=== PATIENT | female | born 1945 | race African-American/Black ===

== ENCOUNTER 2020-05-26 23:32 | Inpatient (IN) | payer OTHER ==
[2020-05-27 00:40] LABS: Basophils % 0.2 % (0-1.3); Hematocrit 45.7 % (36.0-45.0); MPV 10.9 fL (7.6-11.3); RBC Red Blood Cell Count 5.43 M/uL (3.86-4.86)
[2020-05-27 00:57] LABS: Bilirubin Direct 0.3 mg/dL (0-0.2); Bilirubin Total 0.7 mg/dL (0.2-1.0); Protein, Total 7.2 g/dL (6.4-8.2)
[2020-05-27 01:07] LABS: Ferritin 315.9 ng/mL (8-388); Potassium 3.6 mmol/L (3.5-5.1); Troponin (Emerg Dept Use Only) 0.28 ng/mL (0.0-0.045)
[2020-05-27 01:07] LABS: Urine Blood TRACE (NEG); Urine Glucose NEGATIVE (NEG); Urine Protein 3+ (NEG); Urine Specific Gravity >1.030 (1.005-1.030)
[2020-05-27 01:15] LABS: Urine Bacteria >50 /HPF (<20); Urine Culture Reflex Order REFLEXED; Urine Mucus 2+ /HPF (NONE SEEN); Urine RBC <5 /HPF (NONE SEEN)
[2020-05-27 01:16] LABS: Urine Amorphous Sediment 3+ /HPF (NONE SEEN); Urine Coarse Granular Casts FEW /LPF (NONE SEEN)
[2020-05-27] MEDS ORDERED: CEFTRIAXONE/SWI 1gm 1 GM/10 ML SYR ONE ×2 (01:18→15:41)
[2020-05-27] MEDS ORDERED: NA CHLORIDE 0.9% 250 ML ONE (01:18)
[2020-05-27] MEDS ORDERED: dexAMETHasone 10 MG/ML VIAL ONE (01:18)
[2020-05-27] MEDS ORDERED: AZITHROMYCIN 500 MG INJ IVPB ONE ×2 (01:18→21:06)
--- NOTE | 2020-05-27 01:22 | EDPHYS ---
Physician Documentation [facility] Name: Zakiya Stallings Age: 74 yrs Sex: Female : 1945 Arrival Date: 05/26/2020 Time: 23:34 Bed 30 Private MD: ED Physician Angel Vasquez HPI: 05/26 23:52 This 74 yrs old Black Female presents to ER via Ambulatory with complaints of Exosed to rn covid, Heavy Breathing. 23:54 The patient has shortness of breath at rest. Onset: The symptoms/episode began/occurred rn 1 week(s) ago. Duration: The symptoms are continuous. The patient's shortness of breath is aggravated by light activity, is alleviated by nothing. Severity of symptoms: At their worst the symptoms were moderate in the emergency department the symptoms are unchanged. The patient has not experienced similar symptoms in the past. The patient has not recently seen a physician. Son noticed respiratory difficulty today, other family member noticed difficulty breathing with heavy breathing last week, patient's sister recently diagnosed with COVID, and visited last week. Reports generalized weakness, fatigue, sob, decreased appetite, and loss of taste. No known chronic lung problems. . Historical: - Allergies: 23:43 No Known Allergies; ss - PMHx: 23:43 Diabetes - NIDDM; Hypertension; Parkinsons; ss - PSHx: 23:43 R shoulder; knee sx; ss - Immunization history:: Adult Immunizations up to date. - Social history:: Smoking status: Patient denies any tobacco usage or history of. - Family history:: not pertinent. - Hospitalizations: : No recent hospitalization is reported. ROS: 23:54 Constitutional: Negative for fever, chills, and weight loss, ENT: Negative for injury, rn pain, and discharge, Neck: Negative for injury, pain, and swelling, Cardiovascular: Negative for chest pain, palpitations, and edema, Respiratory: + sob Abdomen/GI: Negative for abdominal pain, nausea, vomiting, + diarrhea MS/Extremity: Negative for injury and deformity, Skin: Negative for injury, rash, and discoloration, Neuro: Negative for headache, numbness, tingling, and seizure. Exam: 23:54 Constitutional: This is a well developed, well nourished patient who is awake, alert, rn + moderate tachypnea Head/Face: Normocephalic, atraumatic. ENT: no stridor, + dry MM Cardiovascular: Bradycardic, regular Respiratory: + moderate tachypnea with bibasilar crackles Abdomen/GI: soft, non-tender Skin: Warm, dry MS/ Extremity: Pulses equal, no cyanosis. Neurovascular intact. Neuro: Awake and alert, GCS 15, oriented to person, place, time, and situation. + coarse bilateral upper ext tremor. 23:58 ECG was reviewed by the Attending Physician. rn Vital Signs: 23:41 BP 136 / 113; Pulse 43; Resp 28; Temp 98.9(TE); 05/27 01:03 BP 111 / 63; Pulse 42; Resp 22; Pulse Ox 94% on 3 lpm NC; MDM: 05/26 23:34 Patient medically screened. rn 05/27 01:18 Differential diagnosis: pneumonia, Pneumothorax pulmonary edema, Sepsis COVID, rn multifocal pneumonia. Data reviewed: vital signs, nurses notes, lab test result(s), radiologic studies, plain films, and as a result, I will admit patient. Test interpretation: by ED physician or midlevel provider: plain radiologic studies, CXR shows multifocal pneumonia. Counseling: I had a detailed discussion with the patient and/or guardian regarding: the historical points, exam findings, and any diagnostic results supporting the discharge/admit diagnosis, lab results, radiology results, the need for further work-up and treatment in the hospital. Response to treatment: the patient's symptoms have mildly improved after treatment, and as a result, I will admit patient. Admission orders: after a detailed discussion of the patient's condition and case, the admit orders are written by me. ED course: Pt with multi-focal pneumonia, possible COVID, will try Bipap for work of breathing, admitted to Dr. Martinez for further care. . 01:27 ED course: Pt moved to negative pressure room for bipap and further treatment. . rn 05/26 23:51 Order name: Blood Culture Adult (2) rn 05/26 23:51 Order name: BMP; Complete Time: 01:18 rn 05/26 23:51 Order name: C-Reactive Protein; Complete Time: 01:18 rn 05/26 23:51 Order name: CBC with Diff; Complete Time: 00:55 rn 05/26 23:51 Order name: COVID-19 rn 05/26 23:51 Order name: D-Dimer; Complete Time: 00:55 rn 05/26 23:51 Order name: Ferritin; Complete Time: 01:18 rn 05/26 23:51 Order name: Flu; Complete Time: 01:27 rn 05/26 23:51 Order name: Lactate; Complete Time: 01:18 rn 05/26 23:51 Order name: Procalcitonin; Complete Time: 01:27 rn 05/26 23:51 Order name: Strep; Complete Time: 01:27 rn 05/26 23:51 Order name: Troponin (emerg Dept Use Only); Complete Time: 01:18 rn 05/26 23:51 Order name: Urine Microscopic Only; Complete Time: 01:18 rn 05/26 23:58 Order name: LFT's rn 05/26 23:58 Order name: Lipase; Complete Time: 01:18 rn 05/26 23:59 Order name: Liver (Hepatic) Function; Complete Time: 01:18 EDUT 05/27 01:01 Order name: Urine Dipstick--Ancillary (enter results); Complete Time: 01:18 2 05/27 01:17 Order name: Urine Culture EDUT 05/27 01:24 Order name: Throat Culture EDUT 05/27 01:32 Order name: Lipid Profile EDMS 05/27 01:32 Order name: Lipid Profile EDMS 05/27 10:53 Order name: CBC with Automated Diff EDMS 05/27 11:03 Order name: Lactate EDMS 05/27 11:17 Order name: Basic Metabolic Panel EDUT 05/27 11:17 Order name: Phosphorus EDMS 05/27 11:17 Order name: Troponin I EDMS 05/27 11:17 Order name: NT PRO-BNP EDMS 05/27 11:17 Order name: T4 Free EDUT 05/27 11:17 Order name: Thyroid Stimulating Hormone EDUT 05/27 11:21 Order name: Procalcitonin EDUT 05/26 23:51 Order name: CXR XRAY rn 05/26 23:51 Order name: EKG; Complete Time: 23:52 rn 05/26 23:51 Order name: Cardiac monitoring; Complete Time: 00:26 rn 05/26 23:51 Order name: Document PUI#; Complete Time: 00:28 rn 05/26 23:51 Order name: Droplet/Contact Precautions; Complete Time: 00:29 rn 05/26 23:51 Order name: EKG - Nurse/Tech; Complete Time: 00:29 rn 05/26 23:51 Order name: Tse; Complete Time: 00:29 rn 05/26 23:51 Order name: IV Start; Complete Time: 00:29 rn 05/26 23:51 Order name: Labs collected and sent; Complete Time: 00:29 rn 05/26 23:51 Order name: Notify Health Dept [phone]/ ; Complete Time: 00:28 rn 05/26 23:51 Order name: O2 Per Protocol; Complete Time: 00:29 rn 05/26 23:51 Order name: O2 Sat Monitoring; Complete Time: 00:29 rn 05/26 23:51 Order name: Urine Dipstick-Ancillary (obtain specimen); Complete Time: 00:29 rn 05/27 01:18 Order name: BIPAP rn 05/27 01:32 Order name: CONS Physician Consult EDMS 05/27 01:32 Order name: Regular EDMS 05/27 11:51 Order name: Manual Differential EDMS EC/04 23:58 Rate is 43 beats/min. Rhythm is irregular. QRS interval is normal. QT interval is rn prolonged at 576 msec. No Q waves. No ST changes noted. Clinical impression: Sinus bradycardia and PVCs, coarse baseline due to parkinson's tremor. Interpreted by me. Reviewed by me. Administered Medications: 05/27 01:19 Drug: Rocephin 1 grams Route: IV; Rate: calculated rate; Site: left forearm; 01:31 Follow up: Response: No adverse reaction; IV Status: Completed infusion 01:21 Drug: Decadron - Dexamethasone 10 mg Route: IVP; Site: left forearm; 01:31 Follow up: Response: No adverse reaction 01:23 Drug: Zithromax 500 mg Route: IVPB; Infused Over: 1 hrs; Site: left forearm; 01:32 Follow up: Response: No adverse reaction; IV Status: Infusion continued upon admission 03:18 Drug: NS 0.9% 500 ml Route: IV; Rate: bolus; Site: left forearm; 04:33 Follow up: Response: No adverse reaction; IV Status: Completed infusion Disposition: 05/27/20 01:21 Hospitalization ordered by Esequiel Martinez for Inpatient Admission. Preliminary diagnosis are Multifocal pneumonia, Acute kidney failure, Hypoxemia. - Bed requested for Telemetry/MedSurg (Inpatient). - Status is Inpatient Admission. sv - Condition is Fair. - Problem is new. - Symptoms have improved. Signatures: Dispatcher [employer] EDLynda Engle RN RN Efren, Caryn, RN Angel Parks MD MD rn Smirch, Shelby, RN RN ss Thompson, [place] [facility], Rashawn Corrections: (The following items were deleted from the chart) 01:28 01:21 Hospitalization Ordered by Esequiel Martinez MD for Inpatient Admission. Preliminary diagnosis is Multifocal pneumonia; Acute kidney failure; Hypoxemia. Bed requested for Telemetry/MedSurg (Inpatient). Status is Inpatient Admission. Condition is Fair. Problem is new. Symptoms have improved. rn 15:56 01:28 05/27/2020 01:21 Hospitalization Ordered by Esequiel Martinez MD for Inpatient mt Admission. Preliminary diagnosis is Multifocal pneumonia; Acute kidney failure; Hypoxemia. Bed requested for [facility] ER HOLD. Status is Inpatient Admission. Condition is Fair. Problem is new. Symptoms have improved. 16:56 15:56 05/27/2020 01:21 Hospitalization Ordered by Esequiel Martinez MD for Inpatient sv Admission. Preliminary diagnosis is Multifocal pneumonia; Acute kidney failure; Hypoxemia. Bed requested for Telemetry/MedSurg (Inpatient). Status is Inpatient Admission. Condition is Fair. Problem is new. Symptoms have improved. mt
--- NOTE | 2020-05-27 01:22 | ER ---
Nurse's Notes [facility] Name: Zakiya Stallings Age: 74 yrs Sex: Female : 1945 Arrival Date: 05/26/2020 Time: 23:34 Bed 30 Private MD: Diagnosis: Multifocal pneumonia;Acute kidney failure;Hypoxemia Presentation: 05/26 23:41 Chief complaint: Parent and/or Guardian states: Son reports that patient has been ss having "heavy breathing" for 1 week and diarrhea that began today. Had exposure with a family member who tested positive for COVID. Coronavirus screen: Surgical mask placed on patient. Patient moved to private room, placed in contact and droplet isolation with eye protection until further assessment. Patient denies a cough. Patient reports shortness of breath or difficulty breathing. Patient denies measured and/or subjective temperature greater than 100.4F prior to today's visit. Patient denies travel on a cruise ship or to a country the [facility] currently lists as an affected area. Patient reports contact with known and/or suspected case of COVID-19. Ebola Screen: Patient denies exposure to infectious person. Patient denies travel to an Ebola-affected area in the 21 days before illness onset. Initial Sepsis Screen: Does the patient have a suspected source of infection? No. Patient's initial sepsis screen is negative. Risk Assessment: Do you want to hurt yourself or someone else? Patient reports no desire to harm self or others. Onset of symptoms was May 20, 2020. 23:41 Method Of Arrival: Ambulatory ss 05/27 00:00 Acuity: EDWARDO 3 wh 00:00 Initial Sepsis Screen: Does the patient meet any 2 criteria? RR > 20 per min. wh Historical: - Allergies: 05/26 23:43 No Known Allergies; ss - PMHx: 23:43 Diabetes - NIDDM; Hypertension; Parkinsons; ss - PSHx: 23:43 R shoulder; knee sx; ss - Immunization history:: Adult Immunizations up to date. - Social history:: Smoking status: Patient denies any tobacco usage or history of. - Family history:: not pertinent. - Hospitalizations: : No recent hospitalization is reported. Screenin/05 01:00 Abuse screen: Denies threats or abuse. Denies injuries from another. Nutritional wh screening: No deficits noted. Tuberculosis screening: No symptoms or risk factors identified. Fall Risk None identified. Assessment: 05/26 23:45 General: Appears distressed, Behavior is calm, cooperative, appropriate for age. Pain: wh Denies pain. Neuro: Level of Consciousness is awake, alert, obeys commands, Oriented to person, place, time, situation. Cardiovascular: Heart tones S1 S2 Rhythm is sinus bradycardia. Respiratory: Airway is patent Respiratory effort is labored, Respiratory pattern is tachypnea Breath sounds with crackles bilaterally. Parent/caregiver reports the patient having shortness of breath at rest Pt initial sats at 80% notified MD and Pt was placed on 3LNC and stats went up to 95%. GI: Abdomen is flat, non-distended. : No deficits noted. EENT: Throat is pink. Derm: Skin is intact. Musculoskeletal: Circulation, motion, and sensation intact. 05/27 01:00 Reassessment: Patient appears in no apparent distress at this time. No changes from previously documented assessment. Patient and/or family updated on plan of care and expected duration. Pain level reassessed. 01:30 Reassessment: Pt was placed on BIPAP per MD order, transferred to room 30. Vital Signs: 05/26 23:41 BP 136 / 113; Pulse 43; Resp 28; Temp 98.9(TE); wh 05/27 01:03 BP 111 / 63; Pulse 42; Resp 22; Pulse Ox 94% on 3 lpm NC; ED Course: 05/26 23:34 Patient arrived in ED. bp1 23:34 Angel Vasquez MD is Attending Physician. rn 23:35 Rashawn Duff is Primary Nurse. wh 23:43 Arm band placed on right wrist. 05/27 00:00 Patient has correct armband on for positive identification. Placed in gown. Bed in low wh position. Call light in reach. Side rails up X 1. herb counselor on. Pulse ox on. NIBP on. 00:20 Inserted saline lock: 22 gauge in left forearm, using aseptic technique. Blood wh collected. Missed attempt(s): 20 gauge in right forearm. Bleeding controlled, band aid applied, catheter tip intact. 00:39 CXR XRAY In Process Unspecified. EDMS 00:45 Tse cath inserted, using sterile technique, 18 Fr., by wi, balloon inflated, to gravity drainage, urine specimen collected. returned cloudy urine. Patient tolerated well. 01:00 Triage completed. 01:21 Esequiel Martinez MD is Hospitalizing Provider. rn 01:31 No provider procedures requiring assistance completed. Patient admitted, IV remains in place. Administered Medications: 01:19 Drug: Rocephin 1 grams Route: IV; Rate: calculated rate; Site: left forearm; 01:31 Follow up: Response: No adverse reaction; IV Status: Completed infusion 01:21 Drug: Decadron - Dexamethasone 10 mg Route: IVP; Site: left forearm; 01:31 Follow up: Response: No adverse reaction 01:23 Drug: Zithromax 500 mg Route: IVPB; Infused Over: 1 hrs; Site: left forearm; 01:32 Follow up: Response: No adverse reaction; IV Status: Infusion continued upon admission 03:18 Drug: NS 0.9% 500 ml Route: IV; Rate: bolus; Site: left forearm; 04:33 Follow up: Response: No adverse reaction; IV Status: Completed infusion Outcome: 01:21 Decision to Hospitalize by Provider. rn 01:31 Admitted to ER Hold. Please see [facility] for further documentation. 01:31 Condition: stable 01:31 Instructed on the need for admit. 16:56 Patient left the ED. sv Signatures: Dispatcher [employer] EDMS Lynda Boucher RN KURT Angel Vasquez MD MD rn Smirch, Shelby, RN RN Rashawn Duff Cherelle [facility] Corrections: (The following items were deleted from the chart) 01:28 [id number] 23:41 Temp 98.9F Temporal; [facility] 07 01:29 01:00 Reassessment: Patient appears in no apparent distress at this time. No changes from previously documented assessment. Patient and/or family updated on plan of care and expected duration. Pain level reassessed. Patient is alert, oriented x 3, equal unlabored respirations, skin warm/dry/pink. 01:30 00:20 Inserted saline lock: 22 gauge in right forearm, using aseptic technique. Blood wh collected. Missed attempt(s): 20 gauge in left forearm. Bleeding controlled, band aid applied, catheter tip intact.
[2020-05-27] MEDS ORDERED: ONDANSETRON 4 MG/2 ML VIAL IV PRN (01:27)
[2020-05-27] MEDS ORDERED: ALBUTEROL INHALER 60 PUFF/8 GM IH PRN (01:31)
[2020-05-27 01:56] VITALS: BMI 21.9
[2020-05-27] MEDS ORDERED: ENOXAPARIN 40 MG/0.4 ML SQ SCH (02:00)
[2020-05-27] MEDS ORDERED: NA CHLORIDE 0.9% 1,000 ML IV SCH (02:00)
[2020-05-27] MEDS ORDERED: AZITHROMYCIN IV 500 MG in NA CHLORIDE 0.9% 250 ML IVPB SCH ×2 (03:00→21:00)
--- NOTE | 2020-05-27 07:58 | P.HP ---
Certification for Inpatient Patient admitted to: Inpatient With expected LOS: >2 Midnights Patient will require the following post-hospital care: None Practitioner: I am a practitioner with admitting privileges, knowledge of patient current condition, hospital course, and medical plan of care. Services: Services provided to patient in accordance with Admission requirements found in Title 42 Section 412.3 of the Code of Federal Regulations Patient History Date of Service: 05/27/20 Reason for admission: COVID-19 pneumonia History of Present Illness: Patient is a 74-year-old female who was admitted to the hospital after falling ill and getting short of breath along with some diarrhea. She apparently has had contact with someone with COVID-19 pneumonia. Family states she is been getting more and more fatigued as well. Decision was made to bring her into the emergency room for further evaluation. In the ER, she had imaging studies which revealed multi focal pneumonia. Patient was started on IV antibiotic therapy along with IV steroids. Patient was hypoxic so emergency room physician placed patient in a negative pressure room and started BiPAP support. Patient has a history of Parkinson's disease and she is also bradycardic. Her blood pressure is stable. Will check thyroid studies and resume her Parkinson's medications. Hold off on the other medications pending further workup. Will Consult to pulmonary at this time. Once we know the status of her COVID-19 testing then we may also get Cardiology involved. Patient does have numerous comorbidities. May need to talk with family regarding her code status which is a full code at this time. Allergies No Known Allergies Allergy (Verified 05/27/20 01:50) Home Medications: Carbidopa/Levodopa [Carbidopa-Levo 25-100 mg Odt] 1.5 tab PO QID 05/27/20 Enalapril/Hydrochlorothiazide [Enalapril-Hctz 10-25 mg Tablet] 1 each PO DAILY 05/27/20 Metformin HCl 1,000 mg PO BID 05/27/20 Metoprolol Tartrate 100 mg PO BID 05/27/20 Selegiline HCl 1 cap PO BID 05/27/20 Tizanidine [Zanaflex] 4 mg PO DAILY 05/27/20 - Past Medical/Surgical History Has patient received pneumonia vaccine in the past: Yes Diabetic: Yes -: NIDDM -: Hypertension -: Parkinsons -: Right Shoulder Surgery -: Knee SUrgery - Family History Father Family History: Reviewed- Non-Contributory - Social History Smoking Status: Never smoker Place of Residence: Home Review of Systems 10-point ROS is otherwise unremarkable Physical Examination - Vital Signs Temperature: 97.6 F Blood Pressure: 147/75 Pulse: 45 Respirations: 20 Pulse Ox (%): 97 - Physical Exam General: Alert, In no apparent distress, Oriented x2, Demented, Confused HEENT: Atraumatic, PERRLA, Mucous membr. moist/pink, EOMI, Sclerae nonicteric Neck: Supple, 2+ carotid pulse no bruit, No LAD, Without JVD or thyroid abnormality Respiratory: Clear to auscultation bilaterally, Normal air movement Cardiovascular: Other (Bradycardic), Systolic murmur Gastrointestinal: Normal bowel sounds, Soft and benign, Non-distended, No te nderness Musculoskeletal: No clubbing, No swelling, No tenderness Integumentary: No rashes Neurological: Normal speech, Normal tone, Sensation intact, Cranial nerves 3-12 intact, Normal affect, Abnormal gait, Abnormal strength Lymphatics: No axilla or inguinal lymphadenopathy - Studies Laboratory Data (last 24 hrs) 05/27/20 00:10: Total Bilirubin 0.7, AST 27, ALT 9 L, Alkaline Phosphatase 73, Lipase 179 05/27/20 00:10: WBC 5.2, Hgb 14.6, Hct 45.7 H, Plt Count 179 05/27/20 00:10: Sodium 138, Potassium 3.6, BUN 55 H, Creatinine 2.19 H, Glucose 141 H Microbiology Data (last 24 hrs): 05/27/20 00:10 Throat Group A Streptococcus Rapid Screen - Final 05/27/20 00:10 Nasopharnyx Influenza Type A Antigen Screen - Final 05/27/20 00:10 Nasopharnyx Influenza Type B Antigen Screen - Final Assessment & Plan - Problems (Diagnosis) (1) Suspected COVID-19 virus infection Current Visit: Yes Status: Acute (2) Parkinsons disease Current Visit: Yes Status: Acute (3) Bradyarrhythmia Current Visit: Yes Status: Acute (4) On beta bar at home Current Visit: Yes Status: Acute - Plan 1. Continue with IV antibiotics and intravenous dexamethasone 2. Awaiting COVID-19 testing 3. Repeat chest x-ray 4. If oxygenation is not improving then may need CT scan for PE protocol 5. Pulmonary consultation 6. Continue with albuterol inhaler therapy; continue zinc 7. O2 per protocol; BiPAP support at this time and placed in a negative pressure room 8. Continue with gentle hydration 9. Repeat labs including CBC and renal function in a.m. check thyroid studies. 10. GI and DVT prophylaxis Discharge Plan: Home Plan to discharge in: Greater than 2 days - Advance Directives Does patient have a Living Will: No Does patient have a Durable POA for Healthcare: No - Code Status/Comfort Care Code Status Assessed: Yes Code Status: Full Code Critical Care: No Time Spent Managing PTS Care (In Minutes): 45
[2020-05-27] MEDS ORDERED: dexAMETHasone 10 MG/ML VIAL IV SCH ×2 (09:00)
[2020-05-27] MEDS ORDERED: PNEUMOCOCCAL VACCINE 0.5 ML IMVAC ONE (09:00)
[2020-05-27] MEDS: dexAMETHasone 4 MG/ML VIAL IV SCH ×3 (09:00→23:58)
[2020-05-27] MEDS: LEVOTHYROXINE SOD 0.025 MG TAB PO SCH (09:00)
[2020-05-27] MEDS: ZINC SULFATE 220 MG CAP PO SCH (09:00)
[2020-05-27] MEDS ORDERED: dexAMETHasone 4 MG/ML VIAL ONE (09:07)
[2020-05-27] MEDS ORDERED: NA CHLORIDE 0.9% 1,000 ML ONE (09:09)
[2020-05-27] MEDS: CARBIDOPA/LEVODOPA 25/100 TAB PO SCH ×4 (10:00→20:55)
[2020-05-27 10:50] LABS: Absolute Lymphocytes (CBC) 0.3 K/uL (0.7-4.9); Basophils % 0.2 % (0-1.3); Hematocrit 43.8 % (36.0-45.0); MPV 10.6 fL (7.6-11.3); RBC Red Blood Cell Count 5.24 M/uL (3.86-4.86)
[2020-05-27 11:17] LABS: Phosphorus 3.6 mg/dL (2.5-4.9); Potassium 3.3 mmol/L (3.5-5.1); Thyroid Stimulating Hormone 1.01 uIU/mL (0.360-3.740); Troponin I 0.28 ng/mL (0.0-0.045)
[2020-05-27] MEDS ORDERED: FUROSEMIDE 20 MG/ 2ML VIAL ONE (11:33)
[2020-05-27 11:50] LABS: Blood Morphology Comment NOT SEEN (NOT SEEN); Platelet Estimate ADEQ
[2020-05-27] MEDS: FUROSEMIDE 20 MG/ 2ML VIAL IV SCH ×2 (12:00→17:23)
[2020-05-27] MEDS ORDERED: CEFTRIAXONE 1 GM/NS 50 ML 1 GM/50 ML BAG IV SCH (13:00)
[2020-05-27] MEDS: CEFTRIAXONE/SWI 1gm 1 GM/10 ML SYR IVP SCH ×2 (13:00→23:58)
[2020-05-27] MEDS ORDERED: NAPROXEN 250 MG TAB PO ONE (14:00)
[2020-05-27] MEDS: ENOXAPARIN 30 MG/0.3 ML SQ SCH (20:55)
[2020-05-27] MEDS ORDERED: POTASSIUM 25 MEQ EFFERV TAB PO ONE (21:00)
[2020-05-28] MEDS: ACETAMINOPHEN 500 MG TAB PO PRN ×2 (00:48→21:55)
[2020-05-28] MEDS: FENTANYL CITR 100 MCG/2 ML IV ONE ×2 (02:28→02:45)
[2020-05-28] MEDS ORDERED: FENTANYL CITR 100 MCG/2 ML IV ONE (05:25)
[2020-05-28] MEDS: LEVOTHYROXINE SOD 0.025 MG TAB PO SCH (05:26)
[2020-05-28] MEDS ORDERED: HALOPERIDOL LACT 5 MG/ML INJ IV ONE (06:12)
[2020-05-28 06:21] LABS: Magnesium 2.4 mg/dL (1.8-2.4); Potassium 3.9 mmol/L (3.5-5.1)
[2020-05-28 06:23] LABS: Troponin I 0.36 ng/mL (0.0-0.045)
[2020-05-28] MEDS: FUROSEMIDE 20 MG/ 2ML VIAL IV SCH ×2 (07:31→17:35)
[2020-05-28] MEDS: dexAMETHasone 4 MG/ML VIAL IV SCH (07:31)
[2020-05-28] MEDS: CARBIDOPA/LEVODOPA 25/100 TAB PO SCH ×4 (07:31→20:44)
[2020-05-28] MEDS: ZINC SULFATE 220 MG CAP PO SCH (07:31)
[2020-05-28] MEDS ORDERED: POTASSIUM 25 MEQ EFFERV TAB PO ONE (09:00)
[2020-05-28] MEDS ORDERED: TIZANIDINE 4 MG TABLET PO PRN (09:01)
--- NOTE | 2020-05-28 11:57 | RAD REPORT ---
EXAM DESCRIPTION: RAD - Chest Single View - 05/27/2020 12:39 am CLINICAL HISTORY: Cough; Dyspnea TECHNIQUE: Single frontal view of the chest is submitted. COMPARISON: None available for comparison FINDINGS: Heart: The cardiothoracic silhouette is enlarged. Lungs: Right upper and bilateral lower lobe opacities. Mediastinum: Thoracic aortic atherosclerosis and tortuosity. Pleura: No appreciable effusion. No pneumothorax. Bones: Multilevel spondylosis. Bilateral total reverse shoulder arthroplasty. Upper abdomen: Unremarkable IMPRESSION: Right upper and bibasilar infiltrates. Electronically signed by: Cecile Chino MD 05/27/2020 12:56 AM CDT Due to temporary technical issues with the PACS/Fluency reporting system, reports are being signed by the in house radiologist without review as a courtesy to ensure prompt reporting. The interpreting r adiologist is fully responsible for the content of the report.
[2020-05-28] MEDS: CEFTRIAXONE/SWI 1gm 1 GM/10 ML SYR IVP SCH (12:00)
[2020-05-28] MEDS ORDERED: dexAMETHasone 4 MG/ML VIAL IV ONE (17:00)
--- NOTE | 2020-05-28 18:06 | P.PN ---
Subjective Date of Service: 05/28/20 Chief Complaint: COVID-19 pneumonia Subjective: Other (patient with increase oxygen demand) Physical Examination - Vital Signs Temperature: 96.5 F Blood Pressure: 152/97 Pulse: 43 Respirations: 24 Pulse Ox (%): 91 - Physical Exam General: Alert, Cooperative, Other (Patient was anxious on BiPAP. She did not tolerated.) Respiratory: Other (BiPAP removed. Patient to be placed on non-rebreather) Neurological: Normal speech, Normal strength at 5/5 x4 extr, Normal tone, Abnormal affect (Increase agitation) - Studies Microbiology Data (last 24 hrs): 05/27/20 00:10 Nasopharnyx Coronavirus COVID-19 PCR - Final Medications List Reviewed: Yes Assessment & Plan Discharge Plan: Home Plan to discharge in: Greater than 2 days Physician Review Additional Text: Impression: Bilateral pneumonia with hypoxia secondary to COVID 19 infection Diabetes mellitus type 2 Hypertension Parkinson Anxiety Plan: Patient will be moved for close 1 on 1 care. Patient does not tolerate BiPAP. Will continue home medication. Patient on IV steroids. On antibiotic coverage is well. Continue DVT prophylaxis. Resume most of her medications for Parkinson's. Will consider providing medication for anxiety. Patient be transferred to ICU for close monitoring. Case discussed at length with family. If her condition continues decline will consider convalescent plasma. Will discuss further with pulmonology. Time Spent Managing Pts Care (In Minutes): 55
[2020-05-28] MEDS: ENOXAPARIN 30 MG/0.3 ML SQ SCH (20:44)
[2020-05-28] MEDS: SELEGILINE HCL PO SCH (20:45)
[2020-05-28] MEDS: METOPROLOL TAR 50 MG TAB PO SCH (20:46)
--- NOTE | 2020-05-28 23:36 | CON ---
Date of Consultation: 05/28/2020 Chief Complaint: Acute on chronic kidney injury. History Of Present Illness: The patient presents to the hospital because of generalized weakness. S he was found to have severe hyperazotemia. Patient has nonoliguric urine output. Patient was found to have COVID positive test and was found to have pneumonia. She is 74-year-old female who was admit [facility] to the hospital after she sustained fall at home as well as she was declining with generalized he alth and developed shortness of breath at the same time she has had diarrhea. Currently, she had sic k contact with someone who had COVID negative pneumonia. Family states that she has been getting wea k and was complaining of progressively worse fatigue over last several days. They decided to bring eloy freeman to the emergency room for further evaluation. In the emergency room, imaging studies showed m ultifocal pneumonia with possible viral pneumonia. She was started on IV antibiotics and steroids. She was found to have hypoxemia in the emergency room and was started on BiPAP. Patient has multiple medical problems including history of Parkinson disease, hypertension. She also has history of chuck ycardia. Blood pressure was stable. Patient was evaluated for possible hypothyroidism and test was done in the hospital. Review of Systems: Unobtainable. Patient is confused. Past Medical History: History of diabetes, patient has history of hypertension, Parkinson disease, r ight shoulder surgery, knee surgery. Family History: No kidney disease in the family. Physical Examination: Vital Signs: Blood pressure 147/75, temperature 97.6, heart rate is 45-60, respiratory rate 20, SpO2 97%. Laboratory Data: Total bilirubin 0.7, AST 27, ALT 9, AP 73, lipase 179. WBC 5.2, hemoglobin 13.6, h ematocrit 45.7, platelet count is 179. Sodium 138, potassium 3.6, BUN 55, creatinine 2.19, glucose 1 41. Impression And Plan: Acute kidney injury and monitor urine output. Patient has borderline oliguric urine output. Patient will continue antibiotics for pneumonia. At this point, electrolytes are stab le. There is no evidence of metabolic acidosis. Blood glucose is elevated. Patient needs to be scr eened for diabetes mellitus. Patient has hypoxemia, which is related to pneumonia and she is already started on treatment. COVID test is pending. Troponin is elevated, which may indicate acute coronary syndrome and cardiology consultation will be requested. In view of acute kidney injury plan is to check renal ultrasound. At this point, patient may require diuretic to control interstitial pulmonary edema, which likely is superimposed condition to aggravat e the shortness of breath and reduce hypoxemia. Patient primarily was started on gentle hydration. I agree with IV fluids. Patient tolerates IV fluids. EB/MODL Voice ID: [id number] Report ID: [id number]
[2020-05-29] MEDS: CEFTRIAXONE/SWI 1gm 1 GM/10 ML SYR IVP SCH ×2 (00:55→13:42)
[2020-05-29 04:02] LABS: Potassium 3.8 mmol/L (3.5-5.1)
[2020-05-29] MEDS ORDERED: POTASSIUM 25 MEQ EFFERV TAB PO ONE (04:57)
[2020-05-29] MEDS: LEVOTHYROXINE SOD 0.025 MG TAB PO SCH (05:46)
--- NOTE | 2020-05-29 06:40 | EKG ---
Test Date: 2020-05-28 Test Time: 22:21:56 Cardiology Nurse Practitioner: RT MEASUREMENT RESULTS: Intervals: Rate: 53 MT: QRSD: 110 QT: 442 QTc: 414 [place]: P: MT: QRS: -26 T: 49 INTERPRETIVE STATEMENTS: Junctional rhythm with occasional premature ventricular complexes Incomplete left bundle branch block Left ventricular hypertrophy with repolarization abnormality Abnormal ECG Compared to ECG 05/26/2020 23:53:16 Junctional rhythm now present Left ventricular hypertrophy now present Early repolarization now present Sinus bradycardia no longer present First degree AV block no longer present Ventricular escape complex(es) no longer present Left-axis deviation no longer present Electronically Signed On 05-29-20 06:39:25 CDT by Doug Blanton
[2020-05-29] MEDS: METOPROLOL TAR 50 MG TAB PO SCH (08:14)
[2020-05-29] MEDS: CARBIDOPA/LEVODOPA 25/100 TAB PO SCH ×4 (08:14→20:31)
[2020-05-29] MEDS: SELEGILINE HCL PO SCH ×2 (08:15→20:31)
[2020-05-29] MEDS: ZINC SULFATE 220 MG CAP PO SCH (08:15)
[2020-05-29] MEDS: NACHLORIDE 0.45% 1,000 ML IV SCH ×3 (08:20→21:48)
[2020-05-29] MEDS ORDERED: dexAMETHasone 10 MG/ML VIAL IV SCH (09:00)
[2020-05-29] MEDS: NA CHLORIDE 0.9% 250 ML IV ONE ×2 (10:41→17:05)
--- NOTE | 2020-05-29 13:01 | P.CNS ---
Date of Consult: 05/29/20 Reason for Consult: Carranza virus pneumonia Chief Complaint: COVID-19 pneumonia History of Present Illness: Patient is 74 years of age admitted with pneumonia most likely from the carranza virus she also has fairly severe Parkinson's disease patient is currently on negative flow room on a BiPAP wishes not tolerating very well occluded however she patient's sats a satisfactory on nasal cannula oxygen in addition she was also bradycardic at the time of admission currently patient is in renal failure I suspect is from the diuretics History of hypertension Allergies No Known Allergies Allergy (Verified 05/27/20 01:50) Home Medications: Carbidopa/Levodopa [Carbidopa-Levo 25-100 mg Odt] 1.5 tab PO QID 05/27/20 Enalapril/Hydrochlorothiazide [Enalapril-Hctz 10-25 mg Tablet] 1 each PO DAILY 05/27/20 Metformin HCl 1,000 mg PO BID 05/27/20 Metoprolol Tartrate 100 mg PO BID 05/27/20 Selegiline HCl 1 cap PO BID 05/27/20 Tizanidine [Zanaflex] 4 mg PO DAILY 05/27/20 - Past Medical/Surgical History Diabetic: Yes -: NIDDM -: Hypertension -: Parkinsons -: Right Shoulder Surgery -: Knee SUrgery - Family History Father Family History: Reviewed- Non-Contributory - Social History Place of Residence: Home Review of Systems is unable to be obtained Physical Examination Temp Pulse Resp BP Pulse Ox 97.6 F 35 L 24 H 95/51 L 96 05/29/20 12:28 05/29/20 12:28 05/29/20 12:28 05/29/20 12:28 05/29/20 12:28 General: Other (Deferred patient in isolation due to coronal virus) - Problems (1) Pneumonia due to human coronavirus Current Visit: Yes Status: Acute Plan: Patient is 74 years of age admitted with carranza virus pneumonia an IV fluids due to renal insufficiency continue with steroids and Dc negative pressure ventilation as a nurse oxygenation is satisfactory continuous steroid patient is a little hypotensive not eating drinking prognosis very poor will inserted nasogastric tube to start tube feeds patient's cultures are negative prognosis very poor agree with common less than plasma for now
--- NOTE | 2020-05-29 13:43 | PN ---
Date of Progress Note: 05/29/2020 Subjective: Patient was admitted with COVID pneumonia, respiratory failure. Patient had acute kidne y injury. We do not have any previous history of kidney disease. Patient being oliguric. Patient w as started on IV fluid. Physical Examination: Vital Signs: When I saw the patient, blood pressure 112/56, pulse of 35. Chest: Faint rales bilateral base. Heart: S1, S2 regular. Abdomen: Soft, nontender. Extremities: No edema. Neuro: The patient is sleepy, confused. Follow simple command. Laboratory Data: WBC 3.5, H and H 14.1/43.8, platelets 149. Sodium 145, potassium 3.8, bicarb 21, B UN 78, creatinine 3.2, GFR of 17, calcium 8.4. Current Medications: The patient on includes: 1.Ceftriaxone. 2.Zanaflex. 3.Lovenox. 4.Metoprolol 50 b.i.d. 5.Dexamethasone. 6.Zinc sulfate. 7.Levothyroxine. Assessment And Plan: 1.Acute kidney injury secondary to poor perfusion acute tubular necrosis secondary to low blood pres sure, oliguric, mild uremia. I am going to start the patient on IV hydration. I tried to contact th e daughter and the . at [phone]. Daughter, Peace [phone]; no answer. The patient continued to be oliguric. Patient may need to be initiated on renal replacement therapy. We will monitor. 2.Hypertension, currently blood pressure on the lower side. We will hold the blood pressure medicat ion and we will monitor. 3.We will follow up serology. 4.Coronavirus disease pneumonia with respiratory distress. Continue BiPAP. Patient may need to be started on treatment. 5.Anemia of chronic kidney disease with presence of acute kidney injury. Current hemoglobin is 14. Mostly, she has some concentration. We will start on IV hydration and we will follow up. 6.Pneumonia/coronavirus disease. Continue current antibiotic. We will follow up. OSMAR/JOSE Voice ID: [id number] Report ID: [id number]
[2020-05-29 14:37] LABS: Arterial Blood Carboxyhemoglob 0.5 % (0-1.5); Blood Gas Oxyhemoglobin 93.2 % (94-97); Blood O2 Saturation 94.5 % (92-98.5)
[2020-05-29] MEDS: NA CHLORIDE 0.9% 500 ML IV SCH ×2 (15:26→18:50)
[2020-05-29 18:12] LABS: Urine Appearance TURBID; Urine Blood 3+ (NEG); Urine Color RED; Urine Glucose NEGATIVE (NEG); Urine Protein 2+ (NEG); Urine Specific Gravity 1.025 (1.005-1.030); Urine Urobilinogen 0.2 mg/dL (0.2-1.0)
[2020-05-29 18:19] LABS: Urine Microscopic Reflex ORDER UMIC
[2020-05-29 18:35] LABS: Urine Amorphous Sediment 1+ /HPF (NONE SEEN); Urine Bacteria >50 /HPF (<20); Urine Culture Reflex Order REFLEXED; Urine RBC >50 /HPF (NONE SEEN)
[2020-05-29 18:37] LABS: Urine Bilirubin 2+ (NEG)
[2020-05-29] MEDS ORDERED: NA CHLORIDE 0.9% 250 ML IV ONE (18:42)
[2020-05-29 19:04] LABS: Arterial Blood Carboxyhemoglob 0.6 % (0-1.5); Blood Gas Oxyhemoglobin 76.5 % (94-97); Blood O2 Saturation 77.8 % (92-98.5)
[2020-05-29 19:06] LABS: Urine Protein/Creatinine Ratio 0.51 ratio (<0.15)
[2020-05-29] MEDS ORDERED: METOPROLOL TAR 50 MG TAB PO SCH (21:00)
--- NOTE | 2020-05-29 21:38 | RAD REPORT ---
EXAM DESCRIPTION: US - Renal Ultrasound-Complete - 05/29/2020 9:31 pm CLINICAL HISTORY: Acute renal insufficiency COMPARISON: None. FINDINGS: The right kidney measures 9 cm with a mildly increased echotexture. The left kidney measures 9 cm with a mildly increased echotexture Hydronephrosis is not seen. The bladder is decompressed and poorly evaluated IMPRESSION: Mildly increased renal echotexture consistent with parenchymal disease
[2020-05-29] MEDS: ENOXAPARIN 30 MG/0.3 ML SQ SCH (21:47)
[2020-05-30] MEDS: CEFTRIAXONE/SWI 1gm 1 GM/10 ML SYR IVP SCH ×2 (01:05→12:32)
[2020-05-30] MEDS: LEVOTHYROXINE SOD 0.025 MG TAB PO SCH (01:07)
[2020-05-30 05:01] LABS: Albumin 2.6 g/dL (3.4-5.0); Magnesium 2.7 mg/dL (1.8-2.4); Potassium 4.5 mmol/L (3.5-5.1); Thyroid Stimulating Hormone 1.84 uIU/mL (0.360-3.740)
[2020-05-30] MEDS: NACHLORIDE 0.45% 1,000 ML IV SCH (06:20)
--- NOTE | 2020-05-30 08:15 | RAD REPORT ---
EXAM DESCRIPTION: [facility]05/30/2020 5:42 am CLINICAL HISTORY: Chest pain COMPARISON: May 26 FINDINGS: Moderate alveolar opacities have progressed within the left lung. Moderate right lung opa cities are without significant change. The heart remains enlarged IMPRESSION: Worsening in left and no significant change in right pulmonary opacities probably pneum onia
[2020-05-30 08:38] LABS: Rheumatoid Factor NEG (NEG)
[2020-05-30] MEDS: dexAMETHasone 4 MG/ML VIAL IV SCH (08:40)
[2020-05-30] MEDS: ZINC SULFATE 220 MG CAP PO SCH (08:56)
[2020-05-30] MEDS: CARBIDOPA/LEVODOPA 25/100 TAB PO SCH ×4 (08:56→21:00)
[2020-05-30] MEDS: SELEGILINE HCL PO SCH ×2 (08:57→21:00)
[2020-05-30 09:09] LABS: Arterial Blood Carboxyhemoglob 0.5 % (0-1.5); Blood Gas Oxyhemoglobin 93.2 % (94-97); Blood O2 Saturation 94.8 % (92-98.5)
--- NOTE | 2020-05-30 09:45 | P.PN ---
Subjective Date of Service: 05/29/20 Chief Complaint: COVID-19 pneumonia Subjective: Other (Patient had low blood pressure. Beta-bar stopped. Patient requiring BiPAP. Patient not improving.) Physical Examination - Vital Signs Temperature: 97.2 F Blood Pressure: 107/62 Pulse: 41 Respirations: 36 Pulse Ox (%): 93 - Physical Exam General: Other (Increase fatigue. Only responsive to pain.) Respiratory: Crackles/rales (By lab), Other Cardiovascular: Abnormal pulses (Bradycardia) Integumentary: No tenderness/swelling, No warmth, No cyanosis - Studies Microbiology Data (last 24 hrs): 05/27/20 00:10 Throat Culture & Sensitivity - Final NORMAL UPPER RESPIRATORY AIMEE GROWN. 05/27/20 00:55 Clean Catch Urine [place] Count - Final 05/27/20 00:55 Clean Catch Urine - Final No growth. Medications List Reviewed: Yes Assessment & Plan Discharge Plan: Home Plan to discharge in: 24 Hours Physician Review Additional Text: Impression: Bilateral pneumonia with hypoxia secondary to COVID 19 infection Acute on chronic renal failure stage 4 Bradycardia Diabetes mellitus type 2 Hypertension Parkinson Anxiety Plan: This note is from yesterday. I forgot to place 1. Patient requiring BiPAP. Before I left the hospital, I got a hold of the family to address advanced directives and plan of care. Patient has not been doing well. Patient now requiring BiPAP. Patient did require several boluses of IV fluids. Patient with bradycardia as well. Metoprolol discontinued. Before I left family still wanted patient to be full code. I expressed to the family better condition was deteriorating. Patient will likely require intubation if she continues to decline. I also expressed that if she required intubation her chances survival would be very poor. Spoke at length with pulmonology as well. Pulmonology recommends to continue BiPAP at this time. Will readdress code status and plan of care tomorrow. Recheck lab tomorrow. Case also discuss with respiratory to continue to monitor closely. Time Spent Managing Pts Care (In Minutes): 55
--- NOTE | 2020-05-30 09:49 | P.PN ---
Subjective Date of Service: 05/30/20 Chief Complaint: COVID-19 pneumonia Subjective: Other (Patient required BiPAP Overnite. Blood gases overall stable. Spoke with pulmonology. Also spoke to family. Patient still with poor response. Response to pain noted.) Physical Examination - Vital Signs Temperature: 97.2 F Blood Pressure: 107/62 Pulse: 41 Respirations: 36 Pulse Ox (%): 93 - Physical Exam General: Other (Responds only to pain) Respiratory: Diminished (Bilateral) Cardiovascular: Abnormal pulses (Bradycardia) Gastrointestinal: No rebound, No guarding Integumentary: No tenderness/swelling - Studies Microbiology Data (last 24 hrs): 05/27/20 00:10 Throat Culture & Sensitivity - Final NORMAL UPPER RESPIRATORY AIMEE GROWN. 05/27/20 00:55 Clean Catch Urine [place] Count - Final 05/27/20 00:55 Clean Catch Urine - Final No growth. Medications List Reviewed: Yes Assessment & Plan Discharge Plan: Home Plan to discharge in: Greater than 2 days Physician Review Additional Text: Impression: Bilateral pneumonia with hypoxia secondary to COVID 19 infection Acute on chronic renal failure stage 4 with hypernatremia Bradycardia Diabetes mellitus type 2 Hypertension Parkinson Anxiety Plan: Patient's condition continues to decline. I spoke at length with pulmonology. Pulmonology spoke with family about plan of care and advanced directives. He was able to reach out to the family to readdress patient status and advanced directives. Patient will likely decline and require intubation. Pulmonology recommends DNR. I spoke to the at length concerning the patient's current condition and plan of care. He understands that her condition is worsening. I expressed to him that her condition is likely to decline further. Patient will likely require intubation. Her chances survival if intubated is very poor. Patient also with acute renal failure. I also expressed that she may require dialysis. He understands this. At this time, Patient is to be full code. He would like to readdress this issue if things continue to decline. I have asked him to come to the hospital today but he is not able to. He is to come tomorrow. My plan is to continue current oxygenation with BiPAP. Continue current treatment. I will adjust IV fluids in discuss with nephrology. Will need to readdress advanced directives if patient requires intubation or she continues to decline. I will readdress this is well tomorrow. Metoprolol has been discontinued. Continue monitor closely. Advanced care planning-30 min Time Spent Managing Pts Care (In Minutes): 55
[2020-05-30] MEDS ORDERED: D5W 1,000 ML IV SCH (10:00)
--- NOTE | 2020-05-30 12:31 | P.PN ---
Subjective Date of Service: 05/30/20 Chief Complaint: COVID-19 pneumonia, unresponsive renal failure Subjective: Worsening (Patient's condition is worsening she is unresponsive currently requiring 75% FiO2 patient has significant tremors) Review of Systems is unable to be obtained Physical Examination - Vital Signs Temperature: 97.2 F Blood Pressure: 107/62 Pulse: 41 Respirations: 36 Pulse Ox (%): 93 - Physical Exam General: Unresponsive - Studies Microbiology Data (last 24 hrs): 05/27/20 00:10 Throat Culture & Sensitivity - Final NORMAL UPPER RESPIRATORY AIMEE GROWN. Medications List Reviewed: Yes Assessment & Plan - Problems (Diagnosis) (1) Pneumonia due to human coronavirus Current Visit: Yes Status: Acute Plan: Patient is not doing well heard renal function is worsening requiring a lot of oxygen discuss with the son regarding DNR shows low white count recommend a comfort care not going to would do well on dialysis or on a ventilator patient has very poor baseline continued to remain bradycardic for some reason
[2020-05-30] MEDS ORDERED: D5W 1,000 ML with NA BICARB 8.4% 150 MEQ IV SCH ×2 (17:00)
--- NOTE | 2020-05-30 17:46 | PN ---
Date of Progress Note: 05/30/2020 Subjective: Patient was admitted with COVID pneumonia, respiratory failure, acute kidney injury secondary to COVID, nephropathy, oliguric. Patient was started on hydration yesterday. Patient is oliguric since then. Physical Examination: Vital Signs: When I saw the patient, blood pressure 107/67, pulse of 41, afebrile. Chest: Crackles bilateral. Heart: S1, S2. Bradycardic. Abdomen: Soft, nontender. Extremities: Trace edema. Neuro: Patient confused. Laboratory Data: WBC 3.2, H and H 14.1/43.8, platelets 149. Sodium 146, potassium 4.5, bicarb 16, BUN 100, creatinine 4, GFR of 13, uric acid 14, calcium 8.4, phosphorus 5, magnesium 2.7. PTH 519. CK is 600. Current Medications: The patient on include ceftriaxone, Plavix, zinc sulfate, levothyroxine, IV hydration with D5. Assessment And Plan: 1. Acute kidney injury secondary to coronavirus disease, nephropathy, over volume with respiratory distress and acidosis and uremia . We discussed the case with Dr. Zuniga and he discussed it with the family including the son and the , currently agreed on no aggressive intervention. Patient is going to be [id number], so we going to hold on initiating any renal replacement therapy for the time being. We will start the patient on bicarb drip and we will monitor. 2. Hypertension, controlled optimal. Keep holding any LAURA inhibitor or ARB. 3. Over volume secondary to renal failure as above. 4. Respiratory failure secondary coronavirus disease pneumonia as by Pulmonary. 5. Acidosis secondary to renal failure. We will start sodium bicarb. Patient overall poor prognosis. MA/MODL Voice ID: [id number] Report ID: [id number]
[2020-05-30] MEDS: ENOXAPARIN 30 MG/0.3 ML SQ SCH (21:58)
[2020-05-31] MEDS: CEFTRIAXONE/SWI 1gm 1 GM/10 ML SYR IVP SCH ×2 (02:02→13:25)
[2020-05-31 04:49] LABS: Albumin 2.4 g/dL (3.4-5.0); Magnesium 2.9 mg/dL (1.8-2.4); Phosphorus 4.9 mg/dL (2.5-4.9); Potassium 4.3 mmol/L (3.5-5.1)
[2020-05-31] MEDS: LEVOTHYROXINE SOD 0.025 MG TAB PO SCH (06:01)
[2020-05-31] MEDS: dexAMETHasone 4 MG/ML VIAL IV SCH (08:24)
[2020-05-31] MEDS: SELEGILINE HCL PO SCH ×2 (08:24→21:00)
[2020-05-31] MEDS: ZINC SULFATE 220 MG CAP PO SCH (08:25)
[2020-05-31] MEDS: CARBIDOPA/LEVODOPA 25/100 TAB PO SCH ×4 (08:25→21:00)
[2020-05-31] MEDS ORDERED: FUROSEMIDE 40 MG/4 ML VIAL IV ONE (15:21)
--- NOTE | 2020-05-31 18:47 | P.PN ---
Subjective Date of Service: 05/31/20 Chief Complaint: COVID-19 pneumonia, unresponsive renal failure Subjective: Other (Patient continues to decline) Physical Examination - Vital Signs Temperature: 99.3 F Blood Pressure: 144/90 Pulse: 44 Respirations: 38 Pulse Ox (%): 93 - Physical Exam General: Other (Patient on BiPAP. Patient continues decline. No response to pain.) Respiratory: Other (Poor air movement noted. Tachypnea noted.) Cardiovascular: Abnormal pulses (Bradycardia) - Studies Medications List Reviewed: Yes Assessment & Plan Discharge Plan: Other (Hospice) Plan to discharge in: 24 Hours Physician Review Additional Text: Impression: Bilateral pneumonia with hypoxia secondary to COVID 19 infection Acute on chronic renal failure stage 4 with hypernatremia Bradycardia Diabetes mellitus type 2 Hypertension Parkinson Anxiety Plan: Patient's condition continues to decline. I spoke at length with family. Patient remains DNR. Family was to continue with BiPAP this time. The will consider withdrawal in care likely tomorrow. Will continue supportive care at this time. Continue comfort measures at this time. Will consider discontinuing BiPAP once they want to withdrawal care. Time Spent Managing Pts Care (In Minutes): 55
[2020-06-01] MEDS: CEFTRIAXONE/SWI 1gm 1 GM/10 ML SYR IVP SCH ×2 (02:36→13:00)
[2020-06-01] MEDS: ENOXAPARIN 30 MG/0.3 ML SQ SCH (02:37)
[2020-06-01] MEDS: LEVOTHYROXINE SOD 0.025 MG TAB PO SCH (04:47)
[2020-06-01] MEDS: dexAMETHasone 4 MG/ML VIAL IV SCH (08:04)
[2020-06-01] MEDS: SELEGILINE HCL PO SCH (09:00)
[2020-06-01] MEDS: ZINC SULFATE 220 MG CAP PO SCH (09:00)
[2020-06-01] MEDS: CARBIDOPA/LEVODOPA 25/100 TAB PO SCH ×2 (09:00→13:00)
[2020-06-01 09:04] VITALS: BP 125/115; TEMP 98.2; O2SAT 98
--- NOTE | 2020-06-01 10:39 | P.PN ---
Subjective Date of Service: 06/01/20 Chief Complaint: COVID-19 pneumonia, unresponsive renal failure Subjective: Worsening Subjective Pt with Hx of parkinson's disease , admitted for COVID pneumonia , had ALEXANDER with oliguria today pt is lethargic , tachypoenic , on BiPAP UO improving pt with poor prognosis , will recommend comfort care will hold on lasix and IVF for now Physical exam general: lethargic on BiPAP Neck; Supple, No elevated JVD hear: RRR, normal S1,2 no murmur or rub Chest: decreased air entry , tachypnic Abdomen: Soft , Nt Extremities No edema or ulcer Assessment And Plan: Acute kidney injury secondary due to COVID nephropathy pt with worsening RFt ,might require HD , but considering her prognosis the risk of initiating renal replacement therapy outweigh the benefits , will not recommend to start on H renal dose meds COVID pneumonia cont treatment HAGMA cont sodium bicarb Acute resp failure on BiPAP , tachypneic pt with overall poor prognosis , DNR now , risk of initiating renal replacement therapy outweigh the benefits and pt might rewuirw intubation will recommend comfort care Discussed with primary team and nursing staff total time spent 50 min Physical Examination - Vital Signs Temperature: 98.2 F Blood Pressure: 125/115 Pulse: 49 Respirations: 29 Pulse Ox (%): 98 - Studies Microbiology Data (last 24 hrs): 05/27/20 00:25 Blood - Blood Aerobic Blood Culture - Final No growth in 5 days. 05/27/20 00:25 Blood - Blood Anaerobic Blood Culture - Final No growth in 5 days. 05/27/20 00:10 Blood - Blood Aerobic Blood Culture - Final No growth in 5 days. 05/27/20 00:10 Blood - Blood Anaerobic Blood Culture - Final No growth in 5 days. Medications List Reviewed: Yes Assessment And Plan Physician Review Additional Text: Impression: Bilateral pneumonia with hypoxia secondary to COVID 19 infection Acute on chronic renal failure stage 4 with hypernatremia Bradycardia Diabetes mellitus type 2 Hypertension Parkinson Anxiety Plan: Patient's condition continues to decline. I spoke at length with family. Patient remains DNR. Family was to continue with BiPAP this time. The will consider withdrawal in care likely tomorrow. Will continue supportive care at this time. Continue comfort measures at this time. Will consider discontinuing BiPAP once they want to withdrawal care.
--- NOTE | 2020-06-01 13:14 | P.PN ---
Subjective Date of Service: 06/01/20 Chief Complaint: COVID-19 pneumonia, unresponsive renal failure Subjective: Other (Patient is not improved. Patient still on BiPAP.) Physical Examination - Vital Signs Temperature: 98.2 F Blood Pressure: 125/115 Pulse: 49 Respirations: 29 Pulse Ox (%): 98 - Physical Exam General: Other (Patient remains on BiPAP. No response to pain.) Respiratory: Other (Tachypnea noted. Patient using accessory muscles.) Cardiovascular: Abnormal pulses (Bradycardia) Neurological: Other (No response to pain.) - Studies Microbiology Data (last 24 hrs): 05/27/20 00:25 Blood - Blood Aerobic Blood Culture - Final No growth in 5 days. 05/27/20 00:25 Blood - Blood Anaerobic Blood Culture - Final No growth in 5 days. 05/27/20 00:10 Blood - Blood Aerobic Blood Culture - Final No growth in 5 days. 05/27/20 00:10 Blood - Blood Anaerobic Blood Culture - Final No growth in 5 days. Medications List Reviewed: Yes Assessment & Plan Discharge Plan: Other (Withdrawal care) Physician Review Additional Text: Impression: Bilateral pneumonia with hypoxia secondary to COVID 19 infection Acute on chronic renal failure stage 4 with hypernatremia Bradycardia Diabetes mellitus type 2 Hypertension Parkinson Anxiety Plan: Patient condition has significantly declined. Spoke with family again today. Son and have discussed her care in detail. They understand that her current status is very grave. Over the past several days the made her do not resuscitate. They had been discussing the issue of withdrawal of care. Today they have made a final decision to withdrawal care. BiPAP will be discontinued. Paperwork for withdrawal of care have been addressed in detail. This was addressed in detail with the son who has been in discussion with the . Will provide medication for comfort including medicine for pain, agitation. Case discussed with pulmonology and nephrology. Both agree with plan of care of withdrawal of care. Time Spent Managing Pts Care (In Minutes): 55
[2020-06-01] MEDS ORDERED: MORPHINE 2 MG/ML SYR IV PRN (13:16)
[2020-06-01] MEDS ORDERED: LORazepam 2 MG/ML VIAL IV PRN (13:17)
--- NOTE | 2020-06-01 16:40 | P.DS ---
Admission Date: 05/27/20 Discharge Date: 06/01/20 Primary Care Provider: rose Disposition: Reason for Admission: COVID-19 pneumonia, unresponsive renal failure Consultations: Pulmonary-Dr. Ro Nephrology-Dr. Santana Procedures: CXR: FINDINGS: Moderate alveolar opacities have progressed within the left lung. Moderate right lung opacities are without significant change. The heart remains enlarged IMPRESSION: Worsening in left and no significant change in right pulmonary opacities probably pneumonia Renal US: FINDINGS: The right kidney measures 9 cm with a mildly increased echotexture. The left kidney measures 9 cm with a mildly increased echotexture Hydronephrosis is not seen. 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 Patient had been in contact with a family member who was tested positive for COVID. Chest x-ray revealed bilateral pneumonia. Patient was admitted for further evaluation and treatment. Hospital Course: Patient presented with shortness of breath, increased fatigue. Patient was found to have bilateral viral pneumonia with hypoxia. Patient had been in contact with a person who at tested positive for COVID. Chest x-ray revealed bilateral pneumonia. Pulmonology was consulted. Patient was started on IV steroids, oxygen and other medication. The patient unfortunately continued to decline and developed further worsening acute respiratory failure. Patient required BiPAP. Patient was found positive for COVID. Patient also had acute on chronic renal failure stage 4 with hypernatremia likely related to COVID nephropathy. Dialysis was considered. As her condition continued to decline, advanced directives were addressed in detail with and son in detail. Advanced care planning was also address. The family understood that her condition would continue to decline. The patient was made DNR. Hospice option was addressed in detail. Withdrawal of care also discussed. As her prognosis was grave, family decided to withdrawal care. This was again discussed in detail with pulmonology and nephrology who agreed with plan. As the family decided withdrawal of care, BiPAP was removed. The patient passed peacefully at 3:15 p.m. Vital Signs/Physical Exam: Temp Pulse Resp BP Pulse Ox 98.2 F 49 L 29 H 125/115 H 98 06/01/20 13:14 06/01/20 13:14 06/01/20 14:11 06/01/20 13:14 06/01/20 14:11 Other Physical/Emotional Findings: Patient Laboratory Data at Discharge: WBC 3.5 K/uL (4.3-10.9) L D 05/27/20 10:36 Hgb 14.1 g/dL (12.0-15.0) 05/27/20 10:36 Hct 43.8 % (36.0-45.0) 05/27/20 10:36 Plt Count 149 K/uL (152-406) L 05/27/20 10:36 Sodium Cancelled 06/01/20 05:00 Potassium Cancelled 06/01/20 05:00 BUN Cancelled 06/01/20 05:00 Creatinine Cancelled 06/01/20 05:00 Glucose Cancelled 06/01/20 05:00 Uric Acid 14.0 mg/dL (2.6-6.0) H 05/30/20 03:54 Phosphorus Cancelled 06/01/20 05:00 Magnesium Cancelled 06/01/20 05:00 Total Bilirubin 0.7 mg/dL (0.2-1.0) 05/27/20 00:10 AST 27 U/L (15-37) 05/27/20 00:10 ALT 9 U/L (12-78) L 05/27/20 00:10 Alkaline Phosphatase 73 U/L (45-117) 05/27/20 00:10 Troponin I 0.36 ng/mL (0.0-0.045) H 05/28/20 05:38 Triglycerides 199 mg/dL (<150) H 05/28/20 05:38 Cholesterol 141 mg/dL (<200) 05/28/20 05:38 HDL Cholesterol 43 mg/dL (40-60) 05/28/20 05:38 Cholesterol/HDL Ratio 3.28 05/28/20 05:38 Lipase 179 U/L (73-393) 05/27/20 00:10 Home Medications: Carbidopa/Levodopa [Carbidopa-Levo 25-100 mg Odt] 1.5 tab PO QID 05/27/20 Enalapril/Hydrochlorothiazide [Enalapril-Hctz 10-25 mg Tablet] 1 each PO DAILY 05/27/20 Metformin HCl 1,000 mg PO BID 05/27/20 Metoprolol Tartrate 100 mg PO BID 05/27/20 Selegiline HCl 1 cap PO BID 05/27/20 Tizanidine [Zanaflex] 4 mg PO DAILY 05/27/20 Patient Discharge Instructions: Patient . May she rest in peace. Family informed. Time spent managing pt's care (in minutes): 55
[2020-06-01] MEDS ORDERED: GLUCERNA SHAKE 237 ML CAN PO SCH (21:00)
[2020-06-02 18:20] LABS: HIV AG/AB 4TH GEN Non-reactive (Non-reactive)
[2020-06-04 01:54] LABS: HBsAG Nonreactive (Nonreactive)
--- NOTE | 2020-06-04 15:34 | PN ---
Date of Progress Note: 05/31/2020 Subjective: Patient was admitted with COVID pneumonia. Patient had respiratory failure, seen on BiPAP and on IV hydration. Physical Examination: Vital Signs: When I saw the patient, blood pressure 153/78, pulse of 49, afebrile. Chest: Crackles bilateral. Heart: S1, S2. Bradycardic. Abdomen: Soft, nontender. Extremities: + edema , no cyanosis . Laboratory Data: WBC 3.5, H and H 14.1/43.8, platelets of 149. Sodium of 145, potassium 4.3, bicarb 19, BUN 121, creatinine 4, calcium 8.4, phosphorus 4.9, . Medications: The patient on include: 1. 2. Ceftriaxone. 3. Zanaflex. 4. Lovenox. 5. Bicarbonate drip. 6. Zofran. 7. Levothyroxine. Assessment And Plan: 1. Acute kidney injury secondary to coronavirus disease pneumonia, oliguric, over volume. Dr. Zuniga had a long discussion with the patient's family, the son and the . Apparently, family need for comfort care, currently patient DNR/DNI. We will follow up the patient closely will start the pt on diuresis to establish good urine output. The patient to remain oliguric and will follow up. I can go ahead and discontinue IV fluid for the time being. 2. Patient my need to initiate renal replacement therapy. 3. Hypertension, controlled optimal with right blood pressure for establishing better volume control. 4. Respiratory failure secondary coronavirus disease pneumonia over volume. We will follow up with Pulmonary and the Primary. Patient overall has poor prognosis. OSMAR/JOSE Voice ID: [id number] Report ID: [id number] [facility]
[2020-06-05 00:39] LABS: Vitamin D 1,25-Dihydroxy Total 40 pg/mL (18-72); Vitamin D,1,25-OH2, D2 <8 pg/mL
--- NOTE | 2020-06-05 12:12 | EKG ---
Test Date: 2020-06-01 Test Time: 00:56:42 Loan Review Analyst: RT MEASUREMENT RESULTS: Intervals: Rate: 58 OK: QRSD: 120 QT: 416 QTc: 408 [place]: P: 94 OK: QRS: -57 T: 24 INTERPRETIVE STATEMENTS: Atrial flutter Pulmonary disease pattern RSR' or QR pattern in V1 suggests right ventricular conduction delay Left anterior fascicular block Left ventricular hypertrophy with QRS widening Nonspecific ST and T wave abnormality Compared to ECG 05/28/2020 22:21:56 RSR' in V1 or V2 now present Left anterior fascicular block now present ST (T wave) deviation now present Junctional rhythm no longer present Ventricular premature complex(es) no longer present Left bundle-branch block no longer present Early repolarization no longer present Electronically Signed On 06-05-20 12:09:42 CDT by Doug Blanton
[2020-06-05 20:50] LABS: Hepatitis C Virus RNA (PCR)log <1.18 log IU/mL
== END 2020-06-01 18:05 | disposition expired | DRG 177 ==
LOC: ER 23:32 → ERHOLD 05-27 01:36 → 4TH 05-27 16:17 → 3RD-ICU 05-28 12:08 → 4TH 05-28 21:08
PROVIDERS: ADMIT Family Medicine; ATTEND Family Medicine
PROC: 8E0ZXY6 Isolation (ICD-10-PCS; principal; 2020-05-27)
DX: U07.1 COVID-19 (principal); J12.89 Other viral pneumonia; J96.01 Acute respiratory failure with hypoxia; N17.0 Acute kidney failure with tubular necrosis; E87.0 Hyperosmolality and hypernatremia; N18.4 Chronic kidney disease, stage 4 (severe); E87.2 Acidosis; G20 Parkinson's disease; Z79.84 Long term (current) use of oral hypoglycemic drugs; Z79.899 Other long term (current) drug therapy; F03.90 Unspecified dementia, unspecified severity, without behavioral disturbance, psychotic disturbance, mood disturbance, and anxiety; I49.8 Other specified cardiac arrhythmias; Z66 Do not resuscitate; E11.22 Type 2 diabetes mellitus with diabetic chronic kidney disease; I12.9 Hypertensive chronic kidney disease with stage 1 through stage 4 chronic kidney disease, or unspecified chronic kidney disease; F41.9 Anxiety disorder, unspecified; D63.1 Anemia in chronic kidney disease; W18.30XA Fall on same level, unspecified, initial encounter
CPT/HCPCS: 36415; 51702; 71045; 76770; 80048; 80061; 80069; 80076; 81003; 81015; 82550; 82570; 82652; 82728; 82805; 82947; 83520; 83605; 83690; 83735; 83880; 83970; 84100; 84145; 84156; 84439; 84443; 84484; 84550; 85025; 85379; 86021; 86038; 86140; 86160; 86225; 86430; 86704; 86706; 87040; 87070; 87081; 87086; 87088; 87340; 87389; 87522; 87804; 93005; 94660; 94760; 96361; 96374; 96375; 99285; J0456; J0696; J1100; J1630; J1650; J1940; J2270; J3010; J7030; J7040; J7050; U0002